=== PATIENT | female | born 1960 | race Caucasian/White ===

== ENCOUNTER 2020-01-31 10:59 | Emergency (ER) | payer OTHER, SELFPAY ==
[2020-01-31 11:16] VITALS: BP 138/64; PULSE 70; RESP 16; TEMP 37.5; O2SAT 97
--- NOTE | 2020-01-31 11:38 | ED.GENADULT ---
HPI - General Adult General Chief complaint: Extremity Injury, Lower Stated complaint: fall Time Seen by Provider: 01/31/20 11:38 Source: patient and RN notes reviewed Mode of arrival: ambulatory Limitations: no limitations History of Present Illness HPI narrative: 59-year-old female presents with complains of right lateral anterior knee pain for the past 2 months. Ibuprofen with little relief, last on Tuesday01/29/20 at 08:00. Jesusita says she fell at [facility] in November, and pain increased over the last 24 hours. No new known injury. No radiation of pain. No numbness or tingling, or bleeding. No swelling. No loss of mobility. Exacerbating factor consist of bearing weight. No fever or chills. Hysterectomy, 1984. Remains active. The patient reports she have not been diagnosed with COVID-19. The patient reports she is not waiting for the results of a COVID-19 lab test. The patient reports she do not have fever, chills, weakness, fatigue, myalgia, or facial swelling. The patient reports she do not have a new or worsening cough or shortness of breath. Denies chest pain. The patient reports she do not have any rhinorrhea, congestion, sore throat, nausea, vomiting, abdominal pain, and diarrhea. Tolerating po intake well. Denies recent traveling. Denies concerns for COVID-19 or exposures been home since [id number] order except for essential household needs, working, and return home. At this time, patient is not suspected of having COVID-19. Some parts of this dictation were generated by voice recognition software and may contain typographical and/or grammatical inaccuracies. Related Data Home Medications Medication Instructions Recorded Confirmed Ca b [id number] 1 tablet PO DAILY 01/31/20 01/31/20 [Vitamin D-3 with Aloe] citalopram [Celexa] 40 mg PO DAILY 01/31/20 01/31/20 cyanocobalamin (vitamin B-12) 2,000 mcg PO HS 01/31/20 01/31/20 [Vitamin B-12] dapagliflozin [Farxiga] 10 mg PO DAILY 01/31/20 01/31/20 fenofibrate 160 mg PO DAILY 01/31/20 01/31/20 metformin [Glucophage] 1,000 mg PO QID 01/31/20 01/31/20 [id number] acid-lutein [Centrum 1 tablet PO DAILY 01/31/20 01/31/20 Silver] omega 8-taj-vln-fish oil [Blanchard-3] 1 cap PO DAILY 01/31/20 01/31/20 pravastatin [Pravachol] 40 mg PO DAILY 01/31/20 01/31/20 sitagliptin [Januvia] 100 mg PO DAILY 01/31/20 01/31/20 Allergies Allergy/AdvReac Type Severity Reaction Status Date / Time Cephalosporins Allergy Mild HIVES Verified 01/31/20 11:28 streptomycin Allergy Mild HIVES Verified 01/31/20 11:28 FLU VACINE Allergy Mild DOES NOT Uncoded 01/31/20 11:28 KNOW IODINE CONTRAST Allergy Mild HIVES Uncoded 01/31/20 11:28 PCN Allergy Mild HIVES Uncoded 01/31/20 11:28 CEPHALEXIN MONOHYDRATE Allergy Unknown Uncoded 01/31/20 11:28 Review of Systems Review of Systems: Narrative: CONSTITUTIONAL: Denies fever, chills, sweats. EYES: Denies visual changes, redness, discharge. ENT: Denies rhinorrhea, congestion, sore throat, otalgia. CARDIOVASCULAR: Denies chest pain, palpitations, edema. RESPIRATORY: Denies dyspnea, wheezing, cough. GASTROINTESTINAL: Denies abdominal pain, nausea, vomiting, diarrhea. GENITOURINARY: Denies dysuria, hematuria, abnormal discharge SKIN: Denies rash or itching. MUSCULOSKELETAL: Denies acute back pain or myalgia. Complains of Right anterior knee pain. NEUROLOGIC: Denies numbness, or focal weakness. PSYCHIATRIC: Denies anxiety or depression. All other systems reviewed & are unremarkable except as noted in HPI and below. [facility] Past Medical History Medical History (Updated 02/01/20 @ 00:01 by Dez Altamirano) Diabetes Hypertension Seizures Surgical History Surgical History (Updated 01/31/20 @ 11:56 by CHANTELL Arnold) History of brain surgery clips and wires History of cholecystectomy History of hysterectomy 1984 History of intestinal surgery partial of colon removed History of tubal ligation
[2020-01-31] MEDS: KETOROLAC (*BKC) 60 MG/2 ML VIAL IM (11:53)
== END 2020-01-31 12:23 | disposition home or self-care (01) ==
PROVIDERS: Emergency Provider Nurse Practitioner Family
DX: M25.561 Pain in right knee (principal); E11.9 Type 2 diabetes mellitus without complications; Z79.84 Long term (current) use of oral hypoglycemic drugs; I10 Essential (primary) hypertension
CPT/HCPCS: 96372; 99213; G0463; J1885

== ENCOUNTER 2025-04-01 07:32 | Outpatient (CLI) | payer MEDICARE, SELFPAY ==
--- NOTE | ~2025-04-01 | DEXA_ITS ---
Bone Density Report Name: JH POLK Age: 64 Sex: Female Ethnicity: White Date of : 1960 Indication: postmenopausal; screening for osteoporosis; seizure disorder; hysterectomy; Referring Provider: JACQUELINE, CONNIE Hester Study: Bone densitometry was performed. Exam Date: April 01, 2025 Accession number: [id number] Bone Density: Region BMD T-score Z-score Classification AP Spine(L1-L4) 1.028 -0.2 1.7 Normal Femoral Neck (Left) 0.714 -1.2 0.4 Osteopenia Total Hip (Left) 0.932 -0.1 1.2 Normal Femoral Neck (Right) 0.681 -1.5 0.1 Osteopenia Total Hip (Right) 0.968 0.2 1.5 Normal Total Hip Mean 0.950 0.1 1.4 Normal World Health Organization criteria for BMD impression classify patients as: Normal (T-score at or above -1.0), Osteopenia (T-score between -1.0 and -2.5), or Osteoporosis (T-score at or below -2.5). 10-year Fracture Risk(1): Major Osteoporotic Fracture 7.8% Hip Fracture 0.8% Reported Risk Factors: [place] (), Neck BMD=0.681, BMI=45.9 Input outside FRAX(R) limits. Adjusted to:[place]=583 kg (1) FRAX(R) Version 3.08. Fracture probability calculated for an untreated patient. Fracture probability may be lower if the patient has received treatment. Clinical Information Provided by Patient: Has used the following medications: Vitamin D, Calcium Has the following medical conditions: Any Seizure Disorders, Hysterectomy Patient maximum height was 65 Menopause Age: 58 No regular weight bearing exercise Drinks caffeinated beverages Onset of menses at age 11 Number of children 2 Impression: The patient has low bone mass, based on the Right Femoral Neck T-score. The patient has an estimated ten-year risk of hip fracture of 0.8% and an estimated ten-year risk of major fracture of 7.8%, based on the WHO FRAX algorithm. Discussion: BONE DENSITY IS LOW AT ONE OR MORE SKELETAL SITES. This patient's lowest T-score is low at one or more skeletal sites. It meets the World Health Organization's (WHO) criteria for ?low bone mass? (T-score between -1.0 and -2.5). The patient's 10-year risk of fracture as calculated by FRAX is less than the threshold where pharmacological therapy is recommended by the National Osteoporosis Foundation (NOF). However, all treatment decisions require clinical judgment and consideration of individual patient factors, including patient preferences, comorbidities, previous drug use, risk factors not captured in the FRAX model (e.g., frailty, falls, vitamin D deficiency, increased bone turnover, interval significant decline in bone density) and possible under or overestimation of fracture risk by FRAX. The patient should follow a healthful lifestyle (good nutrition with adequate calcium and vitamin D, and appropriate weight-bearing exercise). Follow-Up: Consider repeating this study in 2 to 3 years to reassess this patient's status, or sooner if there is some new clinical indication. Reported by: JESSE on 04/01/2025 8:32:00 AM. Reviewed, dictated and finalized at location A.
== END 2025-04-01 07:33 | disposition home or self-care (01) ==
LOC: MICIMG 07:33
PROVIDERS: PCP Emergency Medicine; Visit Provider Emergency Medicine
DX: M85.852 Other specified disorders of bone density and structure, left thigh (principal); M85.851 Other specified disorders of bone density and structure, right thigh; M81.0 Age-related osteoporosis without current pathological fracture
CPT/HCPCS: 77080